=== PATIENT | female | born 1990 | race American Indian/Alaskan Native ===

== ENCOUNTER 2018-02-25 23:47 | Outpatient (CLI) | payer MEDICAID ==
[2018-02-26] MEDS ORDERED: LACTATED RINGERS 1,000 ML IV ONE (01:01)
[2018-02-26 01:15] VITALS: BP 111/70
[2018-02-26 02:21] LABS: Bilirubin,Urine NEG (Negative); Blood,Urine NEG (Negative); Color,Urine Yellow (Yellow); Mucus,Urine 1+ /HPF; Protein,Urine <15 mg/dL mg/dL (Negative)
== END 2018-02-26 02:43 | disposition home or self-care (01) ==
LOC: TRG 23:47 → LD 23:50 → TRG 02-26 00:34
PROVIDERS: ATTEND Obstetrics & Gynecology
DX: O47.03 False labor before 37 completed weeks of gestation, third trimester (principal); Z3A.29 29 weeks gestation of pregnancy
CPT/HCPCS: 59025; 81001; 96360; J7120

== ENCOUNTER 2019-05-20 20:49 | Emergency (ER) | payer MEDICAID ==
--- NOTE | 2019-05-20 20:57 | Event Note ---
ED Screening Note Date of service: 05/20/19 Time: 20:55 ED Screening Note: 28 y o female present with 2 weeks of vaginal bleed and pelvic pain x 2 days This initial assessment/diagnostic orders/clinical plan/treatment(s) is/are subject to change based on patients health status, clinical progression and re- assessment by fellow clinical providers in the ED. Further treatment and workup at subsequent clinical providers discretion. Patient/guardian urged not to elope from the ED as their condition may be serious if not clinically assessed and managed. Initial orders include:
[2019-05-20 21:29] LABS: Hematocrit 34.2 % (30.3-42.9); Hemoglobin 11.2 gm/dl (10.1-14.3); Mean Corpuscular HGB Conc 33 % (30-34); Mean Corpuscular Volume 82 fl (79-97); Platelet Count 309 K/mm3 (140-440); Red Blood Count 4.17 M/mm3 (3.65-5.03); Red Cell Distribution Width 15.2 % (13.2-15.2)
[2019-05-20 22:48] LABS: Basophils % (Manual) 0 % (0.0-1.8); Total Cells Counted 100
[2019-05-20 22:49] LABS: Anisocytosis 1+; Platelet Estimate Consistent w Auto; Poikilocytosis 1+
--- NOTE | 2019-05-21 01:33 | Ultrasound Report ---
OB ultrasound. 05/20/2019. HISTORY: . Bleeding. FINDINGS: Imaging was performed transabdominally and endovaginally. The uterus measures 9.3 x 3.7 x 5 cm. The endometrial stripe measures 1.6 cm. Right ovary measures 3.7 x 2.7 x 4.5 cm. Left ovary measures 2.4 x 2.1 x 3.1 cm. Multiple cysts are p resent bilaterally which are predominantly small. A moderate amount of free fluid is noted. IMPRESSION: 1. Thickened endometrial stripe. 2. Bilateral ovarian cysts. 3. Moderate pelvic free fluid likely due to a ruptured cyst. Signer Name: Jordan Drummond MD Signed: 05/21/2019 1:29 AM Workstation Name: [id number]
--- NOTE | 2019-05-21 02:35 | Emergency Department Report ---
ED Female HPI - General Chief complaint: Vaginal Bleeding Stated complaint: /HEAVY BLEEDING Time Seen by Provider: 05/20/19 20:54 Source: patient Mode of arrival: Ambulatory Limitations: No Limitations - History of Present Illness Initial comments: 28-year-old female presents with department complaining having vaginal bleeding off and on for the last 2 weeks and spotting today. States that the last pain. His menstrual period was 2 months ago having cramping pain off and on for the last 3 days. Reports no fever, chills, sweats. No chest pain or palpitations. No nausea, vomiting, diarrhea, constipation, no dysuria, no hematuria. MD Complaint: vaginal bleeding -: Gradual Location: suprapubic Radiation: non-radiating Severity: mild Quality: aching Improves with: none Worsens with: urination Associated Symptoms: vaginal bleeding. denies: vaginal discharge, abdominal pain, nausea/vomiting, fever/chills, loss of appetite, hematuria, rash, shortness of breath, syncope, weakness - Related Data Sexually active: Yes Home Medications Medication Instructions Recorded Confirmed Last Taken Plus Tablet 1 tab PO QDAY 18 02/26/18 Unknown Previous Rx's Medication Instructions Recorded Last Taken Type Ketorolac [Toradol] 10 mg PO Q6H PRN #10 tablet 05/21/19 Unknown Rx Allergies Allergy/AdvReac Type Severity Reaction Status Date / Time Latex, Natural Rubber Allergy Itching Verified 02/26/18 00:00 diphenhydramine AdvReac Unknown Verified 02/26/18 00:01 [From Benadryl] ED Review of Systems ROS: Stated complaint: /HEAVY BLEEDING Other details as noted in HPI Comment: All other systems reviewed and negative ED Past Medical Hx - Past Medical History Hx Hypertension: No Hx Diabetes: No Hx Deep Vein Thrombosis: No Hx Renal Disease: No Hx Sickle Cell Disease: No Hx Seizures: No Hx Asthma: Yes (childhood) - Social History Smoking Status: Never Smoker Substance Use Type: None - Medications Home Medications: Home Medications Medication Instructions Recorded Confirmed Last Taken Type Plus Tablet 1 tab PO QDAY 18 02/26/18 Unknown History Ketorolac [Toradol] 10 mg PO Q6H PRN #10 tablet 05/21/19 Unknown Rx ED Physical Exam - General Limitations: No Limitations General appearance: alert, in no apparent distress - Head Head exam: Present: atraumatic, normocephalic - Eye Eye exam: Present: normal appearance, PERRL, EOMI Pupils: Present: normal accommodation - ENT ENT exam: Present: normal exam, mucous membranes moist, TM's normal bilaterally - Neck Neck exam: Present: normal inspection, full ROM. Absent: meningismus, lymphadenopathy, thyromegaly - Respiratory Respiratory exam: Present: normal lung sounds bilaterally. Absent: respiratory distress, wheezes, rales, accessory muscle use, decreased breath sounds - Cardiovascular Cardiovascular Exam: Present: regular rate, normal rhythm. Absent: systolic murmur, diastolic murmur, rubs, gallop - GI/Abdominal GI/Abdominal exam: Present: soft, tenderness, normal bowel sounds. Absent: distended, guarding, rebound, rigid, organomegaly, mass, bruit, pulsatile mass - Extremities Exam Extremities exam: Present: normal inspection - Back Exam Back exam: Present: normal inspection - Neurological Exam Neurological exam: Present: alert, oriented X3 - Psychiatric Psychiatric exam: Present: normal affect, normal mood - Skin Skin exam: Present: warm, dry, intact, normal color. Absent: rash ED Course Vital Signs 05/20/19 20:55 Temperature 97.8 F Pulse Rate 77 Respiratory 20 Rate Blood Pressure 154/90 [Right] O2 Sat by Pulse 99 Oximetry ED Medical Decision Making - Lab Data Result diagrams: 05/20/19 21:14 - Medical Decision Making 28-year-old -[place] female suspected that she was , spotting last couple of days. However CG is listed to ultrasound which only shows ovarian cyst. No signs of infectious process as the Critical care attestation.: If time is entered above; I have spent that time in minutes in the direct care of this critically ill patient, excluding procedure time. ED Disposition Clinical Impression: Ovarian cyst, Vaginal bleeding, Pelvic pain with negative beta-human chorionic gonadotropin (BhCG) in female Disposition: DC-01 TO HOME OR SELFCARE Is pt being admited?: No Does the pt Need Aspirin: No Condition: Stable Instructions: Menstruation (ED), Ovarian Cyst (ED) Prescriptions: Ketorolac [Toradol] 10 mg PO Q6H PRN #10 tablet PRN Reason: Pain Referrals: [facility] [Provider Group] - 3-5 Days
[2019-05-21 03:23] VITALS: BP 137/88
[2019-05-21 03:40] LABS: Bilirubin,Urine NEG (Negative); Blood,Urine NEG (Negative); Color,Urine Straw (Yellow); Protein,Urine <15 mg/dL mg/dL (Negative); RBC,Urine < 1.0 /HPF (0.0-6.0); Urobilinogen,Urine < 2.0 mg/dL (<2.0)
[2019-05-21 04:02] LABS: HCG Qualitative,Urine Negative (Negative)
== END 2019-05-21 03:15 | disposition home or self-care (01) ==
LOC: ED 20:49
DX: N83.202 Unspecified ovarian cyst, left side (principal); N83.201 Unspecified ovarian cyst, right side; J45.909 Unspecified asthma, uncomplicated; Z79.899 Other long term (current) drug therapy; Z91.040 Latex allergy status; Z88.8 Allergy status to other drugs, medicaments and biological substances; Z91.048 Other nonmedicinal substance allergy status
CPT/HCPCS: 36415; 76830; 76856; 81001; 81025; 84702; 85007; 85025